=== PATIENT | male | born 1965 | race Caucasian/White ===

== ENCOUNTER 2021-11-19 10:37 | Day surgery (SDC) | payer BC ==
[~2021-11-19] VITALS: Ht 182.9 cm; Wt 105.6 kg
[2021-11-19] MEDS ORDERED: normal saline 1000ml 1,000 ML IV SCH (11:10)
[2021-11-19 11:15] VITALS: BP 119/84
[2021-11-19] MEDS ORDERED: SERT-434 PO (11:22)
[2021-11-19] MEDS ORDERED: SIMV-42 PO (11:22)
[2021-11-19] MEDS ORDERED: ROPI1TAB6 PO (11:22)
[2021-11-19] MEDS ORDERED: EMPA25TA PO (11:22)
[2021-11-19] MEDS ORDERED: METO-384 PO (11:22)
[2021-11-19] MEDS ORDERED: LISI40TA13 PO (11:22)
[2021-11-19] MEDS ORDERED: METF-438 PO (11:22)
[2021-11-19 11:28] LABS: EOSINOPHILS # (AUTO) 0.2 X10'3 (0-0.9); WHITE BLOOD COUNT 6.1 X10'3 (4.5-11.0)
[2021-11-19 11:29] LABS: BASOPHILS # (AUTO) 0.1 X10'3 (0-0.2); EOSINOPHILS % (AUTO) 3.7 % (0-6); HEMATOCRIT 46.3 % (42.0-52.0); HEMOGLOBIN 15.9 g/dl (14.0-17.9); LYMPHOCYTES # (AUTO) 1.5 X10'3 (1.1-4.8); LYMPHOCYTES % (AUTO) 24.3 % (21-51); MEAN CORPUSCULAR HGB CONC 34.2 g/dL (33.0-36.5); MEAN PLATELET VOLUME 8.2 FL (7.4-10.4); MONOCYTES # (AUTO) 0.5 X10'3 (0-0.9); MONOCYTES % (AUTO) 7.4 % (2-12); NEUTROPHILS # (AUTO) 3.9 X10'3 (1.8-7.7); NEUTROPHILS % (AUTO) 63.6 % (42-75); PLATELET COUNT 150 X10'3 (140-440); RED BLOOD COUNT 5.87 X10'6 (4.70-6.10); RED CELL DISTRIBUTION WIDTH 14.5 % (11.5-14.5)
[2021-11-19] MEDS ORDERED: diphenhydrAMINE 50 mg/ml inj ONE (11:54)
[2021-11-19] MEDS ORDERED: midazolam 1 mg/ML 2ml injection ONE ×2 (11:55→12:45)
[2021-11-19] MEDS ORDERED: fentaNYL/PF 50MCG/1 ML 2ML syringe ONE ×2 (11:56→12:45)
[2021-11-19 13:07] VITALS: BP 113/62
[2021-11-19 13:15] VITALS: BP 118/60
[2021-11-19 13:30] VITALS: BP 102/50
[2021-11-19 13:45] VITALS: BP 108/59
[2021-11-19 14:00] VITALS: BP 101/63
== END 2021-11-19 14:15 | disposition home or self-care (01) ==
LOC: SSTAY O 10:37
PROVIDERS: ATTEND Preventive Medicine Aerospace Medicine
DX: M89.8X8 Other specified disorders of bone, other site (principal); M85.88 Other specified disorders of bone density and structure, other site; I10 Essential (primary) hypertension; E11.9 Type 2 diabetes mellitus without complications; M19.90 Unspecified osteoarthritis, unspecified site; F41.9 Anxiety disorder, unspecified; G47.30 Sleep apnea, unspecified; Z79.899 Other long term (current) drug therapy; Z79.01 Long term (current) use of anticoagulants
CPT/HCPCS: 20225; 36415; 77002; 85025; 85610; 99152; 99153; J1200; J2250; J3010; J7030; A4620

== ENCOUNTER 2023-04-28 11:54 | Emergency (ER) | payer BC ==
[~2023-04-28] VITALS: Ht 182.9 cm; Wt 109.1 kg
[~2023-04-28 11:54] MED LIST: EMPA25TA PO; LISI40TA13 PO; METF-438 PO; METO-384 PO; ROPI1TAB47 PO; SERT-434 PO; SIMV-42 PO
[2023-04-28] MEDS ORDERED: TETanus/Pertussis (Acell)/Diphther VAC/PF (Tdap-Adult) 0.5ml syringe IMVAC ONE (12:00)
[2023-04-28] MEDS ORDERED: bacitracin 15gm ointment TP ONE (12:50)
[2023-04-28] MEDS ORDERED: ceFAZolin 1gm IM kit IM ONE (12:50)
[2023-04-28] MEDS ORDERED: ibuprofen tablet 400 MG TABLET PO ONE (12:50)
[2023-04-28] MEDS ORDERED: IBUP-1984 PO (13:16)
[2023-04-28] MEDS ORDERED: AMOX-117 PO (13:16)
[2023-04-28] MEDS ORDERED: BACI1PAC7 TP (13:17)
[2023-04-28 13:57] VITALS: BP 124/74; PULSE 78; RESP 16; TEMP 98.4; O2SAT 98
== END 2023-04-28 14:00 | disposition home or self-care (01) ==
LOC: ER 11:55
DX: S60.512A Abrasion of left hand, initial encounter (principal); W54.0XXA Bitten by dog, initial encounter; Y93.89 Activity, other specified; Y92.89 Other specified places as the place of occurrence of the external cause; Y99.8 Other external cause status
CPT/HCPCS: 73130; 90471; 90715; 96372; 99284; J0690; J7030; A4565; A6258; A6446; A6449

== ENCOUNTER 2024-06-04 14:45 | Emergency (ER) | payer BC ==
[~2024-06-04] VITALS: Ht 182.9 cm; Wt 102.3 kg
[2024-06-04 14:46] VITALS: BP 128/87; PULSE 99; RESP 16; TEMP 98.2; O2SAT 97
[2024-06-04] MEDS ORDERED: HYDR-3973 PO (16:17)
== END 2024-06-04 17:14 | disposition home or self-care (01) ==
LOC: ER 14:45
DX: S82.55XA Nondisplaced fracture of medial malleolus of left tibia, initial encounter for closed fracture (principal); E11.9 Type 2 diabetes mellitus without complications; W22.8XXA Striking against or struck by other objects, initial encounter; Y93.89 Activity, other specified; Y92.89 Other specified places as the place of occurrence of the external cause; Y99.8 Other external cause status
CPT/HCPCS: 73610; 99283; A6449